=== PATIENT | male | born 2000 | race Caucasian/White ===

== ENCOUNTER 2021-03-11 19:35 | Emergency (ER) | payer BC ==
[~2021-03-11] VITALS: Ht 188 cm; Wt 70.5 kg
[~2021-03-11 19:35] MED LIST: MULTIPLE VITAMI1 TAB PO
[2021-03-11 19:51] VITALS: TEMP 97.9
[2021-03-11] MEDS ORDERED: NORCO 325 MG-51 TAB PO (20:47)
[2021-03-11 21:05] VITALS: BP 133/76; PULSE 62
== END 2021-03-11 21:05 | disposition home or self-care (01) ==
LOC: COL.ER 19:35
DX: S62.612A Displaced fracture of proximal phalanx of right middle finger, initial encounter for closed fracture (principal); S62.614A Displaced fracture of proximal phalanx of right ring finger, initial encounter for closed fracture; X50.9XXA Other and unspecified overexertion or strenuous movements or postures, initial encounter; Y93.72 Activity, wrestling